=== PATIENT | male | born 1935 | race Caucasian/White ===

== ENCOUNTER → 2017-03-22 | Outpatient (CLI) | payer MEDICARE, MEDICAID ==
[~2017-03-22] MED LIST: ALPR0.5T7 OR; CHOL1TAB42 OR; CITA-77 PO; FLUT250M2 IN; FURO40TA OR; MULT-778 OR; OMEP20CA5 PO; PRA25T OR; RIVA20TA OR; SOTA80TA OR; SPIR25TA OR; SPIR25TA88 OR
[2017-03-22 12:30] LABS: Basophils # (auto) 0 uL; Basophils % (auto) 0.3 % (0.0-2.0); Eosinophils # (auto) 0.1 uL; Eosinophils % (auto) 0.9 % (0.0-7.0); Hematocrit 45.3 % (41.0-53.0); Lymphocytes # (auto) 1.3 uL; Mean Corpuscular Hemoglobin 28.2 pg (28.0-32.0); Mean Corpuscular Hgb Conc. 33.1 g/dL (32.0-36.0); Mean Corpuscular Volume 85.3 fL (80.0-100.0); Mean Platelet Volume 9.1 fL (7.4-10.4); Monocytes # (auto) 0.8 uL; Monocytes % (auto) 7.2 % (0.0-12.0); Neutrophils # (auto) 8.8 uL; Neutrophils % (auto) 79.6 % (37.0-80.0); Platelet Count (auto) 286 10^3/uL (140-450); Red Cell Distribution Width 17.1 % (11.6-16.0)
[2017-03-22 13:00] LABS: Albumin 3.3 g/dL (3.4-5.0); BUN/Creatinine Ratio 16.5; Bilirubin, Direct 0.2 mg/dL (0-0.2); Bilirubin, Total 0.7 mg/dL (0.2-1.0); Calcium 8.9 mg/dL (8.5-10.1); Potassium 4.1 mmol/L (3.5-5.1); Total Protein 7.1 g/dL (6.4-8.2)
== END | disposition home or self-care (01) ==
LOC: LAB 09:02
PROVIDERS: ATTEND Internal Medicine Cardiovascular Disease
DX: I10 Essential (primary) hypertension (principal); E78.00 Pure hypercholesterolemia, unspecified; K74.1 Hepatic sclerosis; E11.9 Type 2 diabetes mellitus without complications; R97.20 Elevated prostate specific antigen [PSA]; R53.81 Other malaise; E03.9 Hypothyroidism, unspecified; D64.9 Anemia, unspecified; E55.9 Vitamin D deficiency, unspecified; N39.0 Urinary tract infection, site not specified
CPT/HCPCS: 36415; 80048; 80061; 80076; 82306; 83036; 84153; 84154; 84403; 84443; 85025

== ENCOUNTER → 2017-04-23 | Outpatient (CLI) | payer MEDICARE, MEDICAID ==
[~2017-04-23] MED LIST changes: +ADENOSINE 90 MG/30 ML INJ IV ONE; +ADENOSINE 98 MG in GIVE UN-DILUTED 0 ML IV ONE; -OMEP20CA5 PO; +OMEP20CA74 PO
== END | disposition home or self-care (01) ==
LOC: Rad HDHVI 13:36
PROVIDERS: ATTEND Internal Medicine Cardiovascular Disease
DX: I10 Essential (primary) hypertension (principal); I25.10 Atherosclerotic heart disease of native coronary artery without angina pectoris; J44.9 Chronic obstructive pulmonary disease, unspecified
CPT/HCPCS: 78452; 93005; 96374; 96375; A9500; J0153

== ENCOUNTER → 2018-01-29 | Outpatient (CLI) | payer MEDICARE, MEDICAID ==
[~2018-01-29] MED LIST changes: -ADENOSINE 90 MG/30 ML INJ IV ONE; -ADENOSINE 98 MG in GIVE UN-DILUTED 0 ML IV ONE
[2018-01-29 12:13] LABS: Basophils # (auto) 0 uL; Basophils % (auto) 0.7 % (0.0-2.0); Eosinophils # (auto) 0.3 uL; Eosinophils % (auto) 4.7 % (0.0-7.0); Hematocrit 35.8 % (41.0-53.0); Hemoglobin 11.8 g/dL (13.5-17.5); Lymphocytes # (auto) 0.6 uL; Lymphocytes % (auto) 8.3 % (10.0-50.0); Mean Corpuscular Hemoglobin 28.1 pg (28.0-32.0); Mean Corpuscular Volume 85.1 fL (80.0-100.0); Monocytes # (auto) 0.7 uL; Monocytes % (auto) 10.1 % (0.0-12.0); Neutrophils # (auto) 5.2 uL; Neutrophils % (auto) 76.2 % (37.0-80.0); Nucleated Red Blood Cells % 0.1 %; Platelet Count (auto) 263 10^3/uL (140-450); Red Cell Distribution Width 15.6 % (11.8-14.3); White Blood Cell 6.9 10^3/uL (4.4-10.8)
[2018-01-29 12:42] LABS: Albumin 3.2 g/dL (3.4-5.0); BUN/Creatinine Ratio 15.8; Bilirubin, Total 0.5 mg/dL (0.2-1.0); Calcium 8.5 mg/dL (8.5-10.1); Free T4 (Free Thyroxine) 1.03 ng/dL (0.89-1.76); Potassium 3.9 mmol/L (3.5-5.1); Total Protein 7.4 g/dL (6.4-8.2)
[2018-01-29 12:57] LABS: Prostate Specific Antigen 4.89 ng/mL (0.0-4.0)
== END | disposition home or self-care (01) ==
LOC: LAB 07:54
PROVIDERS: ATTEND Internal Medicine Cardiovascular Disease
DX: I10 Essential (primary) hypertension (principal); E78.5 Hyperlipidemia, unspecified; D64.9 Anemia, unspecified; E11.9 Type 2 diabetes mellitus without complications; E03.9 Hypothyroidism, unspecified; E55.9 Vitamin D deficiency, unspecified; R53.81 Other malaise; D51.9 Vitamin B12 deficiency anemia, unspecified; K74.1 Hepatic sclerosis; R97.20 Elevated prostate specific antigen [PSA]
CPT/HCPCS: 36415; 80053; 80061; 82306; 82607; 83036; 84153; 84154; 84403; 84439; 84443; 85025

== ENCOUNTER 2018-04-12 01:29 | Emergency (ER) | payer MEDICARE, MEDICAID ==
[~2018-04-12] VITALS: Ht 182.9 cm; Wt 117.9 kg
[2018-04-12] MEDS ORDERED: LIDOCAINE 1% (LOCAL ANESTH.) PF 5ml SDV IJ ONE ×2 (02:15→02:30)
[2018-04-12] MEDS ORDERED: LIDOCAINE 1% HCL (LOCAL ANESTH.) INJ 20ML MDV ONE (02:18)
[2018-04-12 04:12] VITALS: BP 135/72
[2018-04-12] MEDS ORDERED: cefTRIAXone 1GM/10ml IVPUSH 10 ML IV ONE (04:30)
[2018-04-12] MEDS ORDERED: TETANUS-DIPTH-ACEL PERTUSSIS 0.5ML SYRG IM ONE (04:30)
== END 2018-04-12 04:57 | disposition home or self-care (01) ==
LOC: ER 01:29 → EDBD 01:29 → ER 04:57
DX: S31.811A Laceration without foreign body of right buttock, initial encounter (principal); I11.0 Hypertensive heart disease with heart failure; I50.9 Heart failure, unspecified; I48.91 Unspecified atrial fibrillation; E78.5 Hyperlipidemia, unspecified; J44.9 Chronic obstructive pulmonary disease, unspecified; Z86.73 Personal history of transient ischemic attack (TIA), and cerebral infarction without residual deficits; Z87.891 Personal history of nicotine dependence; Z87.11 Personal history of peptic ulcer disease; Z88.0 Allergy status to penicillin; X58.XXXA Exposure to other specified factors, initial encounter; Y93.89 Activity, other specified; Y92.89 Other specified places as the place of occurrence of the external cause; Y99.8 Other external cause status
CPT/HCPCS: 12002; 90471; 90715; 96374; 99284; J2001

== ENCOUNTER 2018-04-24 12:47 | Emergency (ER) | payer MEDICARE, MEDICAID ==
[~2018-04-24] VITALS: Ht 172.7 cm; Wt 108.9 kg
[2018-04-24 14:23] VITALS: BP 114/64
== END 2018-04-24 17:17 | disposition left against medical advice (07) ==
LOC: ER 12:47
DX: S30.91XD Unspecified superficial injury of lower back and pelvis, subsequent encounter (principal); Z53.21 Procedure and treatment not carried out due to patient leaving prior to being seen by health care provider; X58.XXXD Exposure to other specified factors, subsequent encounter

== ENCOUNTER → 2018-08-07 | Outpatient (CLI) | payer MEDICARE, MEDICAID ==
[2018-08-07 16:42] LABS: Basophils # (auto) 0.1 uL; Eosinophils # (auto) 0.2 uL; Lymphocytes # (auto) 1.1 uL; Monocytes # (auto) 0.7 uL; Neutrophils # (auto) 4.7 uL; Nucleated Red Blood Cells % 0.1 %
[2018-08-07 16:45] LABS: Albumin 3.8 g/dL (3.4-5.0); BUN/Creatinine Ratio 25.7; Bilirubin, Direct 0.1 mg/dL (0-0.2); Bilirubin, Total 0.5 mg/dL (0.2-1.0); Calcium 8.6 mg/dL (8.5-10.1); Potassium 4.1 mmol/L (3.5-5.1); Total Protein 7.8 g/dL (6.4-8.2)
[2018-08-07 16:46] LABS: Basophils % (auto) 0.9 % (0.0-2.0); Eosinophils % (auto) 2.6 % (0.0-7.0); Hematocrit 40.1 % (41.0-53.0); Hemoglobin 13.1 g/dL (13.5-17.5); Lymphocytes % (auto) 16.5 % (10.0-50.0); Mean Corpuscular Hemoglobin 26.4 pg (28.0-32.0); Mean Corpuscular Hgb Conc. 32.8 g/dL (32.0-36.0); Mean Corpuscular Volume 80.5 fL (80.0-100.0); Monocytes % (auto) 10.4 % (0.0-12.0); Neutrophils % (auto) 69.6 % (37.0-80.0); Platelet Count (auto) 258 10^3/uL (140-450); Red Blood Cells 4.98 10^6/uL (4.5-5.90); Red Cell Distribution Width 17.6 % (11.8-14.3); White Blood Cell 6.8 10^3/uL (4.4-10.8)
== END | disposition home or self-care (01) ==
LOC: LAB 14:55
PROVIDERS: ATTEND Internal Medicine
DX: C61 Malignant neoplasm of prostate (principal); E11.9 Type 2 diabetes mellitus without complications; E03.9 Hypothyroidism, unspecified; K74.1 Hepatic sclerosis; E55.9 Vitamin D deficiency, unspecified; E29.1 Testicular hypofunction; N39.0 Urinary tract infection, site not specified; I50.9 Heart failure, unspecified; J44.9 Chronic obstructive pulmonary disease, unspecified
CPT/HCPCS: 36415; 80048; 80061; 80076; 82306; 83036; 84153; 84154; 84403; 84443; 85025

== ENCOUNTER 2019-02-05 22:43 | Observation (INO) | payer MEDICARE, MEDICAID ==
[~2019-02-05] VITALS: Ht 170.2 cm; Wt 99.8 kg
[2019-02-06] MEDS ORDERED: IPRATROPIUM BROM 0.5 MG/2.5ML INH SOL NEB ONE (01:00)
[2019-02-06] MEDS ORDERED: ALBUTEROL SULF 2.5 MG/0.5ML(0.5%) NEB SOLN NEB ONE (01:00)
[2019-02-06 03:22] LABS: Basophils # (auto) 0.1 uL; Eosinophils # (auto) 0.2 uL; Mean Corpuscular Hgb Conc. 32.2 g/dL (32.0-36.0); Monocytes # (auto) 0.8 uL; Neutrophils # (auto) 4.3 uL; Nucleated Red Blood Cells % 0.1 %; White Blood Cell 6.3 10^3/uL (4.4-10.8)
[2019-02-06 03:24] LABS: Basophils % (auto) 0.9 % (0.0-2.0); Eosinophils % (auto) 2.5 % (0.0-7.0); Hematocrit 37.3 % (41.0-53.0); Lymphocytes # (auto) 0.9 uL; Lymphocytes % (auto) 14.4 % (10.0-50.0); Mean Corpuscular Hemoglobin 24.9 pg (28.0-32.0); Mean Corpuscular Volume 77.4 fL (80.0-100.0); Neutrophils % (auto) 69.2 % (37.0-80.0); Platelet Count (auto) 221 10^3/uL (140-450); Red Blood Cells 4.82 10^6/uL (4.5-5.90); Red Cell Distribution Width 18.7 % (11.8-14.3)
[2019-02-06 03:44] LABS: Alanine Aminotransferase 14 U/L (16-61); Albumin 3.3 g/dL (3.4-5.0); Anion Gap 1 (5-15); Aspartate Aminotransferase 12 U/L (15-37); Blood Urea Nitrogen 23 mg/dL (7-18); Calcium 8.5 mg/dL (8.5-10.1); Carbon Dioxide 32 mmol/L (21-32); Chloride 105 mmol/L (98-107); GFR African American 78 mL/min; GFR Non-African American 65 mL/min; Glucose 99 mg/dL (74-106); INR 1.04 (0.9-1.15); Magnesium 2.1 mg/dL (1.6-2.6); Partial Thromboplastin Time 28.9 sec (23.78-33.04); Potassium 4.3 mmol/L (3.5-5.1); Sodium 138 mmol/L (136-145)
[2019-02-06 03:50] LABS: Alkaline Phosphatase 64 U/L (45-117); Bilirubin, Total 0.4 mg/dL (0.2-1.0); Total Protein 7.1 g/dL (6.4-8.2)
[2019-02-06] MEDS ORDERED: FUROSEMIDE 20 MG/2 ML VIAL IV ONE (05:00)
[2019-02-06 08:50] VITALS: BP 156/74
== END 2019-02-06 09:13 | disposition home or self-care (01) | DRG 293 ==
LOC: EDBD 22:43 → EDUNIT# 22:43 → ER 22:47 → OVERFLOW 22:48 → ER 02-06 09:13
PROVIDERS: ADMIT Emergency Medicine; ATTEND Emergency Medicine
DX: I11.0 Hypertensive heart disease with heart failure (principal); I48.91 Unspecified atrial fibrillation; I50.9 Heart failure, unspecified; J44.9 Chronic obstructive pulmonary disease, unspecified; E78.5 Hyperlipidemia, unspecified; N28.9 Disorder of kidney and ureter, unspecified; F32.9 Major depressive disorder, single episode, unspecified; Z87.11 Personal history of peptic ulcer disease; Z87.891 Personal history of nicotine dependence; Z88.0 Allergy status to penicillin; Z79.899 Other long term (current) drug therapy; Z86.73 Personal history of transient ischemic attack (TIA), and cerebral infarction without residual deficits
CPT/HCPCS: 36415; 71045; 80053; 83735; 83880; 84443; 84484; 85025; 85379; 85610; 85730; 94640; 96374; 99284; G0378; J1940; J7611; J7644

== ENCOUNTER 2019-03-05 16:18 | Emergency (ER) | payer MEDICARE, MEDICAID ==
[~2019-03-05] VITALS: Ht 177.8 cm; Wt 120.2 kg
[2019-03-05] MEDS ORDERED: HYDROcodone-ACET 5/325MG TAB PO ONE (17:45)
[2019-03-05] MEDS ORDERED: ASPirin 81 mg TAB PO ONE (17:45)
[2019-03-05 18:02] LABS: Hemoglobin 12.6 g/dL (13.5-17.5); Mean Corpuscular Hemoglobin 24.9 pg (28.0-32.0); Mean Corpuscular Hgb Conc. 31.6 g/dL (32.0-36.0); Mean Corpuscular Volume 78.9 fL (80.0-100.0)
[2019-03-05 18:04] LABS: Basophils # (auto) 0 uL; Basophils % (auto) 0.4 % (0.0-2.0); Eosinophils # (auto) 0.2 uL; Eosinophils % (auto) 1.9 % (0.0-7.0); Hematocrit 39.9 % (41.0-53.0); Lymphocytes # (auto) 0.9 uL; Lymphocytes % (auto) 10.7 % (10.0-50.0); Monocytes # (auto) 0.9 uL; Monocytes % (auto) 10.9 % (0.0-12.0); Neutrophils # (auto) 6.4 uL; Neutrophils % (auto) 76.1 % (37.0-80.0); Platelet Count (auto) 257 10^3/uL (140-450); Red Blood Cells 5.06 10^6/uL (4.5-5.90); Red Cell Distribution Width 19.2 % (11.8-14.3); White Blood Cell 8.4 10^3/uL (4.4-10.8)
[2019-03-05 18:05] LABS: Chloride 100 mmol/L (98-107); Potassium 4.9 mmol/L (3.5-5.1); Sodium 133 mmol/L (136-145)
[2019-03-05 18:07] LABS: Albumin 3.4 g/dL (3.4-5.0); Anion Gap 6 (5-15); Blood Urea Nitrogen 25 mg/dL (7-18); Calcium 8.8 mg/dL (8.5-10.1); Carbon Dioxide 27 mmol/L (21-32); Glucose 87 mg/dL (74-106); Magnesium 2.1 mg/dL (1.6-2.6)
[2019-03-05 18:10] LABS: Alanine Aminotransferase 16 U/L (16-61); Aspartate Aminotransferase 21 U/L (15-37); BUN/Creatinine Ratio 24.8; GFR African American 91 mL/min; GFR Non-African American 75 mL/min
[2019-03-05 18:13] LABS: Alkaline Phosphatase 66 U/L (45-117); Bilirubin, Total 0.4 mg/dL (0.2-1.0); Total Protein 7.6 g/dL (6.4-8.2)
[2019-03-05] MEDS ORDERED: POTASSIUM CHL 20 Meq TABLET PO ONE (21:00)
[2019-03-05] MEDS ORDERED: FUROSEMIDE 40 MG/4 ML VIAL IV ONE (21:00)
[2019-03-05 21:21] VITALS: BP 117/76
== END 2019-03-05 22:52 | disposition home or self-care (01) ==
LOC: EDBD 16:18 → EDUNIT# 16:18 → ER 16:18
DX: I24.9 Acute ischemic heart disease, unspecified (principal); I48.91 Unspecified atrial fibrillation; J44.9 Chronic obstructive pulmonary disease, unspecified; E78.5 Hyperlipidemia, unspecified; I10 Essential (primary) hypertension; Z87.11 Personal history of peptic ulcer disease; Z86.73 Personal history of transient ischemic attack (TIA), and cerebral infarction without residual deficits; Z87.891 Personal history of nicotine dependence; Z88.0 Allergy status to penicillin; Z88.8 Allergy status to other drugs, medicaments and biological substances; Z79.899 Other long term (current) drug therapy
CPT/HCPCS: 36415; 71045; 80053; 83735; 84484; 85025; 93005; 93970; 99284; J1940

== ENCOUNTER → 2019-06-01 | Outpatient (CLI) | payer MEDICARE, MEDICAID ==
[~2019-06-01] VITALS: Ht 170.2 cm; Wt 122.5 kg
[~2019-06-01] MED LIST changes: +ADENOSINE 103 MG in GIVE UN-DILUTED 0 ML IV ONE; +ADENOSINE 90 MG/30 ML INJ IV ONE; -ALPR0.5T7 OR; +CARI-277 PO; +ESCI10TA PO; -FURO40TA OR; +GABA300C10 PO; -OMEP20CA74 PO; +OXYB5TAB24 PO; +PANT40TA2 PO; -SPIR25TA OR; +ZOLP10TA PO
== END | disposition home or self-care (01) ==
LOC: Rad HDHVI 12:59
PROVIDERS: ATTEND Internal Medicine Cardiovascular Disease
DX: I42.9 Cardiomyopathy, unspecified (principal); I51.7 Cardiomegaly
CPT/HCPCS: 78452; 93005; 93306; 96374; 96375; A9500; J0153

== ENCOUNTER → 2019-06-22 | Outpatient (CLI) | payer MEDICARE, MEDICAID ==
[~2019-06-22] MED LIST changes: -ADENOSINE 103 MG in GIVE UN-DILUTED 0 ML IV ONE; -ADENOSINE 90 MG/30 ML INJ IV ONE; -SOTA80TA OR; +SOTA80TA PO; -SPIR25TA88 OR; +SPIR25TA88 PO
[2019-06-22 10:07] VITALS: BP 133/74
--- NOTE | 2019-06-22 10:07 | NUR ---
CHF PT ARRIVED AT THE [facility] FOR PREOP VSS, EKG, LABS XRAY
[2019-06-22 10:23] VITALS: BP 126/72
--- NOTE | 2019-06-22 10:23 | NUR ---
Pre-Op Discharge Summary: See e-MAR for any medications given for this visit. Pre-op orders received and carried out per MD of EKG, LABS and chest xrays. Patient given a copy of EKG with instructions to go to [facility] out patient for further follow up care.
[2019-06-22 12:14] LABS: Basophils # (auto) 0 uL; Eosinophils # (auto) 0.2 uL; Lymphocytes # (auto) 0.7 uL; Neutrophils # (auto) 3.2 uL
[2019-06-22 12:16] LABS: Basophils % (auto) 0.8 % (0.0-2.0); Eosinophils % (auto) 3.8 % (0.0-7.0); Hematocrit 37.4 % (41.0-53.0); Hemoglobin 11.6 g/dL (13.5-17.5); Lymphocytes % (auto) 15.4 % (10.0-50.0); Mean Corpuscular Hemoglobin 24.6 pg (28.0-32.0); Mean Corpuscular Hgb Conc. 31.1 g/dL (32.0-36.0); Mean Corpuscular Volume 79.1 fL (80.0-100.0); Monocytes # (auto) 0.4 uL; Monocytes % (auto) 9.9 % (0.0-12.0); Neutrophils % (auto) 70.1 % (37.0-80.0); Nucleated Red Blood Cells % 0.4 %; Platelet Count (auto) 173 10^3/uL (140-450); Red Blood Cells 4.73 10^6/uL (4.5-5.90); Red Cell Distribution Width 18.2 % (11.8-14.3); White Blood Cell 4.5 10^3/uL (4.4-10.8)
[2019-06-22 12:24] LABS: Calcium 8.5 mg/dL (8.5-10.1); Potassium 4.2 mmol/L (3.5-5.1)
[2019-06-22 12:26] LABS: BUN/Creatinine Ratio 22.1
[2019-06-22 12:28] LABS: INR 1.04 (0.9-1.15); Partial Thromboplastin Time 24.8 sec (23.64-32.05)
== END | disposition home or self-care (01) ==
LOC: Rad HDHVI 09:53
PROVIDERS: ATTEND Internal Medicine Cardiovascular Disease
DX: Z01.818 Encounter for other preprocedural examination (principal); I11.9 Hypertensive heart disease without heart failure; I70.0 Atherosclerosis of aorta; J98.11 Atelectasis; D64.9 Anemia, unspecified; R79.1 Abnormal coagulation profile
CPT/HCPCS: 36415; 71046; 80048; 85025; 85610; 85730; 93005; G0463

== ENCOUNTER 2019-06-25 09:38 | Day surgery (SDC) | payer MEDICARE, MEDICAID ==
[~2019-06-25] VITALS: Ht 170.2 cm; Wt 131.5 kg
[2019-06-25] MEDS ORDERED: LORazepam 0.5 MG TAB PO ONE (10:15)
[2019-06-25] MEDS ORDERED: fentaNYL CITRATE 100 MCG/2 ML VL ONE (10:59)
[2019-06-25] MEDS ORDERED: ANGIOMAX 250 MG VIAL IV ONE (10:59)
[2019-06-25] MEDS ORDERED: SODIUM CHL 0.9% 0 ML ONE (11:00)
[2019-06-25] MEDS ORDERED: IOHEXOL 350 MG/ML 100ML IJ ONE (11:00)
[2019-06-25] MEDS ORDERED: MIDAZOLAM HCL 1MG/1ML-2 ML VIAL ONE (11:00)
[2019-06-25] MEDS ORDERED: LIDOCAINE 2%HCL (LOCAL ANESTH.) INJ 20ML MDV ONE (11:00)
[2019-06-25] MEDS ORDERED: VERAPAMIL 2.5MG/ML INJ 2ML VIAL IV ONE (11:09)
[2019-06-25] MEDS ORDERED: ACETAMINOPHEN 500 MG TAB PO PRN (13:45)
[2019-06-25] MEDS ORDERED: ONDANSETRON HCL 4 MG/2 ML VIAL IV PRN (13:45)
[2019-06-25] MEDS ORDERED: HYDROcodone-ACET 5/325MG TAB PO PRN (13:45)
== END 2019-06-25 15:20 ==
LOC: CATH 09:38
PROVIDERS: ATTEND Internal Medicine Cardiovascular Disease
DX: I25.10 Atherosclerotic heart disease of native coronary artery without angina pectoris (principal); I42.2 Other hypertrophic cardiomyopathy; J44.9 Chronic obstructive pulmonary disease, unspecified; E66.8 Other obesity; I10 Essential (primary) hypertension; E03.9 Hypothyroidism, unspecified; G20 Parkinson's disease; F41.9 Anxiety disorder, unspecified; G89.29 Other chronic pain; M54.16 Radiculopathy, lumbar region; F17.210 Nicotine dependence, cigarettes, uncomplicated; Z88.0 Allergy status to penicillin; Z79.82 Long term (current) use of aspirin; Z79.899 Other long term (current) drug therapy; Z96.698 Presence of other orthopedic joint implants; Z98.890 Other specified postprocedural states; Z68.42 Body mass index [BMI] 45.0-49.9, adult; Z88.8 Allergy status to other drugs, medicaments and biological substances
CPT/HCPCS: 93458; 93571; C1760; C1887; C1894; J1644; J2250; J3010; J7030; Q9967; 99152

== ENCOUNTER 2019-07-17 06:33 | Inpatient (IN) | payer MEDICARE, MEDICAID ==
[~2019-07-17] VITALS: Ht 170.2 cm; Wt 129.0 kg
[2019-07-17] MEDS ORDERED: methylPREDNISolone SOD SUCC 125 MG/2 ML VL IV ONE (07:15)
[2019-07-17] MEDS ORDERED: ALBUTEROL SULF 2.5 MG/0.5ML(0.5%) NEB SOLN HHN ONE (07:15)
[2019-07-17] MEDS ORDERED: IPRATROPIUM BROM 0.5 MG/2.5ML INH SOL HHN ONE (07:15)
[2019-07-17 09:23] LABS: Albumin 3.3 g/dL (3.4-5.0); Anion Gap 5 (5-15); BUN/Creatinine Ratio 25.8; Blood Urea Nitrogen 25 mg/dL (7-18); Calcium 8.4 mg/dL (8.5-10.1); Carbon Dioxide 33 mmol/L (21-32); Chloride 100 mmol/L (98-107); GFR African American 95 mL/min; GFR Non-African American 79 mL/min; Glucose 106 mg/dL (74-106); Potassium 4.1 mmol/L (3.5-5.1); Sodium 138 mmol/L (136-145)
[2019-07-17 09:26] LABS: Basophils # (auto) 0 uL; Eosinophils # (auto) 0.2 uL; Monocytes # (auto) 0.6 uL; Red Blood Cells 4.93 10^6/uL (4.5-5.90)
[2019-07-17 09:28] LABS: Alanine Aminotransferase 16 U/L (16-61); Alkaline Phosphatase 58 U/L (45-117); Aspartate Aminotransferase 18 U/L (15-37); Bilirubin, Total 0.6 mg/dL (0.2-1.0); Total Protein 7.2 g/dL (6.4-8.2)
[2019-07-17 09:31] LABS: Basophils % (auto) 0.4 % (0.0-2.0); Eosinophils % (auto) 3.1 % (0.0-7.0); Hematocrit 38.6 % (41.0-53.0); Hemoglobin 12.2 g/dL (13.5-17.5); Lymphocytes # (auto) 0.8 uL; Lymphocytes % (auto) 14.3 % (10.0-50.0); Mean Corpuscular Hemoglobin 24.7 pg (28.0-32.0); Mean Corpuscular Hgb Conc. 31.6 g/dL (32.0-36.0); Mean Corpuscular Volume 78.4 fL (80.0-100.0); Monocytes % (auto) 10.8 % (0.0-12.0); Neutrophils % (auto) 71.4 % (37.0-80.0); Platelet Count (auto) 150 10^3/uL (140-450); Red Cell Distribution Width 19.3 % (11.8-14.3); White Blood Cell 5.6 10^3/uL (4.4-10.8)
[2019-07-17] MEDS: RIVAROXABAN 20 MG TAB PO SCH (10:00)
[2019-07-17] MEDS ORDERED: MORPHINE SULF INJ 2 MG/ML SYRINGE 1ML IV PRN (10:00)
[2019-07-17] MEDS ORDERED: NITROGLYCERIN 0.4 MG SL TAB SL PRN (10:00)
[2019-07-17] MEDS ORDERED: cefTRIAXone 1GM/50ML D5W 50 ML IV SCH (10:00)
[2019-07-17] MEDS: PANTOPRAZOLE 40 MG TAB PO SCH (10:00)
[2019-07-17] MEDS: CARISOPRODOL 350 MG TAB PO SCH ×2 (10:00→22:30)
[2019-07-17] MEDS: CITALOPRAM HYDROBR 20 MG TAB PO SCH (10:00)
[2019-07-17] MEDS: SPIRONOLACTONE 25 MG TAB PO SCH (10:00)
[2019-07-17] MEDS: IPRATROPIUM BROM 0.5 MG/2.5ML INH SOL NEB SCH ×4 (10:20→21:49)
[2019-07-17] MEDS ORDERED: FUROSEMIDE 40 MG/4 ML VIAL IV ONE (12:30)
[2019-07-17] MEDS: methylPREDNISolone SOD SUCC 40 MG/ML VL IV SCH ×2 (14:28→22:30)
[2019-07-17] MEDS: GABAPENTIN 300 MG CAP PO SCH ×2 (14:28→22:30)
[2019-07-17] MEDS: LEVOFLOXACIN 500MG 100 ML IV SCH (14:29)
[2019-07-17 15:38] VITALS: BP 120/65
--- NOTE | 2019-07-17 16:15 | NUR ---
Telemetry admit from ER CRISTINAJEREMIAH admitted to Telemetry unit after SBAR received. Patient oriented to Marlen Banks, primary RN, unit, room, bed, and unit policies regarding patient care and visiting hours. Patient now on continuous telemetry monitoring, tele box # 1 and telemetry reading on arrival to unit is ST-[id number]. Patient placed on bedside oxygen, weighed by bed scale and encouraged to call if they need something. All questions and concerns addressed, patient verbalized understanding.
--- NOTE | 2019-07-17 16:35 | NUR ---
Wound photos on buttocks area done. Wound consult ordered.
[2019-07-17 17:00] VITALS: BP 96/60
--- NOTE | 2019-07-17 18:33 | NUR ---
Respiratory note: AT BEDSIDE FOR MED RALPH TX. PT TOLERATING WELL VIA MASK, POX ON 2LPM NC ARE 88%, HR 101, BS ARE FINE COURSE. RT NAME AND PAGER ASSIGNMENT WRITTEN ON PTS ROOM BOARD. WILL CONTINUE TO MONITOR.
--- NOTE | 2019-07-17 18:45 | NUR ---
Respiratory note: INCREASE FIO2 TO 4LPM NC. RN AT BEDSIDE AND AWARE.
--- NOTE | 2019-07-17 20:00 | NUR ---
open note assumed care of pt. upon entering room pt awake and alert. pt on 4L nc with no s/s distress at this time. pt c/o pain "all over" denies chest pain, this nurse will access MAR and medicate as appropriate. pt updated on plan of care. bed locked, low and 2x rails up. call light in reach. encouraged pt to call as needed for assistance. this nurse will round q1hr and prn.
--- NOTE | 2019-07-17 20:10 | NUR ---
paged Dr Pandya for pt complaints of pain. orders received, will input and dispense and ordered.
[2019-07-17] MEDS: HYDROcodone-ACET 10/325MG TAB PO PRN (20:41)
--- NOTE | 2019-07-17 21:10 | NUR ---
Respiratory note: SXD PT VIA TRACH FOR MODERATE THICK SOLANO.
[2019-07-17 22:00] VITALS: BP 121/67
[2019-07-17] MEDS ORDERED: ZOLPIDEM TARTRATE 5 MG PO SCH (22:00)
[2019-07-17] MEDS: ZOLPIDEM TARTRATE 5 MG TAB PO SCH (22:30)
[2019-07-18] MEDS: IPRATROPIUM BROM 0.5 MG/2.5ML INH SOL NEB SCH ×6 (02:05→22:09)
[2019-07-18] MEDS: HYDROcodone-ACET 10/325MG TAB PO PRN ×2 (04:41→20:47)
[2019-07-18 05:29] VITALS: BP 124/62
[2019-07-18] MEDS: methylPREDNISolone SOD SUCC 40 MG/ML VL IV SCH ×3 (06:46→21:47)
[2019-07-18] MEDS: GABAPENTIN 300 MG CAP PO SCH ×3 (06:46→21:47)
--- NOTE | 2019-07-18 08:00 | NUR ---
Opening Shift Note Assumed care of patient, awake and alert. No S/S of distress/SOB, 4/10 generalized body pain. Instructed on POC and to call for assist PRN, will continue to monitor for changes Q1hr and PRN.
[2019-07-18] MEDS: ALBUTEROL SULF 2.5 MG/0.5ML(0.5%) NEB SOLN NEB PRN ×3 (09:08→22:09)
[2019-07-18 09:09] VITALS: BP 133/62
[2019-07-18] MEDS: LEVOFLOXACIN 500MG 100 ML IV SCH (10:37)
[2019-07-18] MEDS: CITALOPRAM HYDROBR 20 MG TAB PO SCH (10:39)
[2019-07-18] MEDS: PANTOPRAZOLE 40 MG TAB PO SCH (10:39)
[2019-07-18] MEDS: SPIRONOLACTONE 25 MG TAB PO SCH (10:40)
[2019-07-18] MEDS: RIVAROXABAN 20 MG TAB PO SCH (10:40)
[2019-07-18] MEDS: CARISOPRODOL 350 MG TAB PO SCH ×2 (10:40→21:47)
--- NOTE | 2019-07-18 11:30 | NUR ---
PT DECLINED P.T. TODAY.
--- NOTE | 2019-07-18 12:04 | NUR ---
Nutrition Assessment Notes please see attached link for complete assessment Est. Needs ABW (99 kg): 5907-3865 kcal (17-20 kcal/kgBW), 99-108 gms pro (1.0-1.1 gms/kgBW). Will continue to monitor pertinent labs and reassess nutrient need prn Addendum: 07/18/19 at [address] Amended: Links added.
[2019-07-18 13:05] VITALS: BP 128/57
[2019-07-18 16:52] VITALS: BP 104/50
--- NOTE | 2019-07-18 17:00 | NUR ---
WOUND CARE NOTE: Wound care consult received from nursing for pressure injuries present on admission. Patient is an 83yo male admitted for bronchitis. Patient with a history of afib, anxiety, CHF, COPD, depression, high lipids, HTN, PUD and TIA. Patient is alert and denies pain. Last Lizandro score is 15. Patient states that he's had sores to buttocks to several weeks and developed them at [facility]. Patient with three wounds to sacrum, two on the right measuring 1.5x2.5cm and 0.5x0.5cm and on the left measuring 0.5x0.5cm. Patient is able to turn self in bed. States that he does have some discomfort when sitting up in chair. Seat cushion provided to help when up in chair. RECOMMENDATIONS: Dietary consult; Turn q2hrs; Nursing to cleanse buttocks wounds with wound cleanser, pat dry, apply THERAHONEY GEL to wounds, cover with OPTIFOAM GENTLE dressing, change every other day and PRN; wound care team to follow. Addendum: 07/18/19 at 1827 by JUNE JENNINGS RN Amended: Links added.
--- NOTE | 2019-07-18 19:33 | NUR ---
Opening Shift Note Assumed care of patient, awake and alert. Patient on 4L NC with a humidifier saturating at 93%. No s/s of SOB at this moment. Patient verbalizes generalized pain and rates it as a 7/10. Will assess patient and medicate as per order. Instructed on POC and to call for assist PRN, will continue to monitor for changes Q1hr and PRN.
--- NOTE | 2019-07-18 20:00 | NUR ---
Patient states he "wet his bed", patient asked questions in regards to incontinence, patient states he is "no truly incontinent but is used to using diapers at [facility]". Patient educated in regards on alternative measures to void such as urinal and to call for assistance as needed as well as risks of skin integrity if moist skin. Patient verbalizes understanding. Full linen change provided, patients skin cleaned and dried. Optifoam gentle dressing dry and intact. Will continue to monitor.
[2019-07-18 21:24] VITALS: BP 120/64
[2019-07-18] MEDS: ZOLPIDEM TARTRATE 5 MG TAB PO SCH (21:47)
--- NOTE | 2019-07-18 22:24 | NUR ---
DR HE TEXTED IN REGARDS TO PATIENTS NON PRODUCTIVE COUGH, CAUSING DISCOMFORT AND SORE THROAT. PATIENT REQUESTS COUGH SYRUP. AWAITING ORDERS FROM .
--- NOTE | 2019-07-19 | NUR ---
ROUNDS PATIENT AWAKE AND ALERT, RESTING COMFORTABLY IN BED WATCHING TELEVISION. DENIES PAIN OR SOB AT THIS TIME. CONTINUES TO VERBALIZE SORE THROAT AND NEED FOR COUGH SUPPRESSANT. AWAITING ORDERS FROM MD. PATIENT ALSO STATES "I FEEL DEPRESSED, I AM TIRED OF FEELING SICK". CLERGY/COMMUNITY SERVICES OFFERED TO PATIENT. PATIENT DECLINES AT THIS TIME. PATIENT PROVIDED WITH HOT BEVERAGE AND READING MATERIAL TO AID A DISTRACTION. PATIENT STATES "THAT WILL HELP", WILL CONTINUE TO MONITOR Q1H AND PRN
[2019-07-19] MEDS: ALBUTEROL SULF 2.5 MG/0.5ML(0.5%) NEB SOLN NEB PRN ×6 (02:17→22:47)
[2019-07-19] MEDS: IPRATROPIUM BROM 0.5 MG/2.5ML INH SOL NEB SCH ×6 (02:17→22:47)
[2019-07-19] MEDS: HYDROcodone-ACET 10/325MG TAB PO PRN ×2 (05:09→22:15)
[2019-07-19 05:17] VITALS: BP 135/56
[2019-07-19] MEDS: GABAPENTIN 300 MG CAP PO SCH ×3 (05:29→22:15)
[2019-07-19] MEDS: methylPREDNISolone SOD SUCC 40 MG/ML VL IV SCH ×3 (05:29→22:15)
--- NOTE | 2019-07-19 06:07 | NUR ---
DID NOT RECEIVE CALL/TEXT BACK FROM MD HE. PATIENT CONTINUES TO COMPLAIN OF COUGH AND SORE THROAT. WILL ENDORSE COUGH MEDICINE REQUEST TO DAY SHIFT.
--- NOTE | 2019-07-19 07:18 | NUR ---
ENDORSED CARE/ PENDING REQUESTS TO DAY SHIFT RNKRIS.
--- NOTE | 2019-07-19 08:00 | NUR ---
Opening Shift Note Assumed care of patient, awake and alert. No S/S of distress/SOB, 4/10 generalized body pain. Turned to sides every 2 hours. Instructed on POC and to call for assist PRN, will continue to monitor for changes Q1hr and PRN.
[2019-07-19 09:00] VITALS: BP 152/72
[2019-07-19] MEDS: CITALOPRAM HYDROBR 20 MG TAB PO SCH (09:30)
[2019-07-19] MEDS: SPIRONOLACTONE 25 MG TAB PO SCH (09:30)
[2019-07-19] MEDS: RIVAROXABAN 20 MG TAB PO SCH (09:30)
[2019-07-19] MEDS: PANTOPRAZOLE 40 MG TAB PO SCH (09:30)
[2019-07-19] MEDS: CARISOPRODOL 350 MG TAB PO SCH ×2 (09:30→22:15)
[2019-07-19] MEDS: LEVOFLOXACIN 500MG 100 ML IV SCH (09:30)
[2019-07-19 13:21] VITALS: BP 135/75
[2019-07-19] MEDS: ACETYLCYSTEINE 10 %(100MG/ML) SOL 4ML NEB SCH ×2 (14:45→22:47)
[2019-07-19 17:03] VITALS: BP 128/80
--- NOTE | 2019-07-19 19:20 | NUR ---
Opening Shift Note Assumed care of patient, awake and alert. Patient on 4L NC with a humidifier saturating at 92%. Patient denies pain at this moment. Bed at its lowest position, side rails up X2. Call light within reach. Instructed on POC and to call for assist PRN, will continue to monitor for changes Q1hr and PRN.
[2019-07-19 22:00] VITALS: BP 134/59
--- NOTE | 2019-07-19 22:00 | NUR ---
linen change Patient incontinent of urine. Skin integrity assessed for any changes. Patient cleaned and dried, linens changed. Patient repositioned for comfort.
[2019-07-19] MEDS: ZOLPIDEM TARTRATE 5 MG TAB PO SCH (22:15)
--- NOTE | 2019-07-19 22:35 | NUR ---
RT NOTE: PT REQUEST NOT TO BE DISTURBED FOR 0200 TX, PT STATED HE WANTS TO REST AND WILL CALL IF SOB OCCURS.
[2019-07-20] MEDS: IPRATROPIUM BROM 0.5 MG/2.5ML INH SOL NEB SCH ×7 (01:58→22:21)
[2019-07-20] MEDS: ALBUTEROL SULF 2.5 MG/0.5ML(0.5%) NEB SOLN NEB PRN ×6 (02:52→22:21)
[2019-07-20] MEDS: ACETYLCYSTEINE 10 %(100MG/ML) SOL 4ML NEB SCH ×4 (02:59→22:22)
[2019-07-20] MEDS: guaiFENesin-DM 100/10mg/5ml SYR PO PRN ×3 (03:11→22:24)
[2019-07-20 05:00] VITALS: BP 139/50
[2019-07-20] MEDS: GABAPENTIN 300 MG CAP PO SCH ×3 (06:06→22:13)
[2019-07-20] MEDS: methylPREDNISolone SOD SUCC 40 MG/ML VL IV SCH ×3 (06:06→22:13)
--- NOTE | 2019-07-20 08:00 | NUR ---
Opening Shift Note Assumed care of patient, awake and alert. No S/S of distress/SOB , 5/10 generalized body pain. Instructed on POC and to call for assist PRN, will continue to monitor for changes Q1hr and PRN.
--- NOTE | 2019-07-20 08:18 | NUR ---
Patient stated having blood stain around the IV site on the left index finger. IV still flushed very well with NS 10ml but patient requested if IV can be changed. IV removal done, catheter intact and pressure dressing applied.
--- NOTE | 2019-07-20 08:30 | NUR ---
IV insertion IV access obtained, via clean sterile technique by inserting 22 gauge catheter at left hand after one attempt. IV secured properly. No trauma to site. Patient tolerated well.
[2019-07-20 09:00] VITALS: BP 138/65
[2019-07-20] MEDS: LEVOFLOXACIN 500MG 100 ML IV SCH (09:44)
[2019-07-20] MEDS: PANTOPRAZOLE 40 MG TAB PO SCH (09:44)
[2019-07-20] MEDS: CARISOPRODOL 350 MG TAB PO SCH ×2 (09:44→22:13)
[2019-07-20] MEDS: CITALOPRAM HYDROBR 20 MG TAB PO SCH (09:45)
[2019-07-20] MEDS: RIVAROXABAN 20 MG TAB PO SCH (09:45)
[2019-07-20] MEDS: SPIRONOLACTONE 25 MG TAB PO SCH (09:45)
--- NOTE | 2019-07-20 10:00 | NUR ---
Turning to sides every 2 hours. Patient able to turn with minimal assistance.
[2019-07-20 12:00] VITALS: BP 120/58
[2019-07-20 15:37] LABS: Basophils # (auto) 0 uL; Basophils % (auto) 0.2 % (0.0-2.0); Eosinophils # (auto) 0 uL; Lymphocytes # (auto) 0.6 uL; Platelet Count (auto) 231 10^3/uL (140-450); White Blood Cell 8.9 10^3/uL (4.4-10.8)
[2019-07-20 15:38] LABS: Hematocrit 39.6 % (41.0-53.0); Hemoglobin 12.5 g/dL (13.5-17.5); Lymphocytes % (auto) 7.2 % (10.0-50.0); Mean Corpuscular Hemoglobin 24.9 pg (28.0-32.0); Mean Corpuscular Hgb Conc. 31.7 g/dL (32.0-36.0); Mean Corpuscular Volume 78.5 fL (80.0-100.0); Monocytes # (auto) 1.2 uL; Monocytes % (auto) 13.2 % (0.0-12.0); Neutrophils % (auto) 79.4 % (37.0-80.0); Red Blood Cells 5.05 10^6/uL (4.5-5.90); Red Cell Distribution Width 19.3 % (11.8-14.3)
[2019-07-20 15:54] LABS: Albumin 3.3 g/dL (3.4-5.0); Calcium 8.2 mg/dL (8.5-10.1); Potassium 4.7 mmol/L (3.5-5.1)
[2019-07-20 15:57] LABS: Bilirubin, Total 0.4 mg/dL (0.2-1.0); Total Protein 7.4 g/dL (6.4-8.2)
--- NOTE | 2019-07-20 16:11 | NUR ---
Assessment Pt is a 83 yr old pt alert and oriented. Prior to admission, pt resides at [facility] and plans to d/c there upon clearance. Pt's emergency contact and SANDEE is his daughter, Merle Hightower, . Pt admitted with Bronchitis and experiences severe shortness of breath. Pt stated that he uses 02 continuously 03/06. Pt also utilizes walker, W/C, shower chair. Pt's primary Dr Pandya. Pt agrees and understands d/c back to SNF upon medical clearance. Addendum: 07/20/19 at 1618 by KIERSTEN GILES Amended: Links added.
[2019-07-20 17:00] VITALS: BP 138/60
--- NOTE | 2019-07-20 17:00 | NUR ---
Applied Thera honey on right buttocks then covered with Optifoam dressing.
[2019-07-20 19:09] LABS: Urine WBC None Seen /hpf (0 - 3)
--- NOTE | 2019-07-20 19:10 | NUR ---
Opening Shift Note Assumed care of patient, awake and alert. Sitting up in bed finishing dinner. No S/S of distress/SOB or pain. Instructed on POC and to call for assist PRN, will continue to monitor for changes Q1hr and PRN.
[2019-07-20 19:25] LABS: Urine Bacteria NONE SEEN /hpf (None Seen); Urine Blood Negative /uL (Negative); Urine Specific Gravity 1.014 (1.001-1.035)
[2019-07-20 22:00] VITALS: BP 134/76
[2019-07-20] MEDS: ZOLPIDEM TARTRATE 5 MG TAB PO SCH (22:13)
[2019-07-20] MEDS: HYDROcodone-ACET 10/325MG TAB PO PRN (22:15)
--- NOTE | 2019-07-20 22:15 | NUR ---
RT AT BEDSIDE
[2019-07-21] MEDS: ALBUTEROL SULF 2.5 MG/0.5ML(0.5%) NEB SOLN NEB PRN ×4 (02:13→22:00)
[2019-07-21] MEDS: IPRATROPIUM BROM 0.5 MG/2.5ML INH SOL NEB SCH ×6 (02:13→22:00)
[2019-07-21 03:35] VITALS: BP 134/76
[2019-07-21 05:00] VITALS: BP 119/64
[2019-07-21] MEDS: methylPREDNISolone SOD SUCC 40 MG/ML VL IV SCH ×3 (06:24→22:23)
[2019-07-21] MEDS: GABAPENTIN 300 MG CAP PO SCH ×3 (06:25→22:24)
[2019-07-21] MEDS: ACETYLCYSTEINE 10 %(100MG/ML) SOL 4ML NEB SCH ×3 (06:45→22:00)
--- NOTE | 2019-07-21 07:47 | NUR ---
Opening Patient awake in bed, lights on, bed in lowest position, call light within reach. No distress noted at this time. Will f/u with morning assessment. Patient has history of ESBL in sputum however no isolation set up, will confirm this with charge nurse, and place protocol order for a sputum to rule this out. MRSA negative Blood cultures negative BUN 31 Sodium 134 UA negative Physical therapy has been frequent CXR shows small L pleural effusion Patient has 2 allergies, will confirm. This is patient of DR Pandya, will await next orders for Plan of care
[2019-07-21 08:58] VITALS: BP 132/71
--- NOTE | 2019-07-21 12:47 | NUR ---
Nutrition Follow-up Notes Wt.: 127.2 kg as of yesterday. Pt's on oxygen via nasal cannula, asleep, no immediate family member at bedside during rounds this morning. Pt's no signs of distress noted earlier, currently on Chopped Fine 2 gms Na diet with adequate PO intake aeb 100% ave. consumed meals (x6) in last 2.5 days. Est. Needs ABW (99 kg): 0956-8607 kcal (17-20 kcal/kgBW), 99-108 gms pro (1.0-1.1 gms/kgBW). Will continue to monitor pertinent labs and reassess nutrient need prn Labs: Gluc 158 H, Na 134 L, BUN 31 H, Ca 8.2 L, Alb 3.3 L Skin: Lizandro scale 13, mod risk, tp's left right buttocks pressure ulcers per driller brake lining. Pls refer to latest enginehouse brakeman's notes for further details re: tx plans. GI: Pt's no bowel activity since 07/17/19 per driller brake lining. PES: Altered nutrition related lab values r/t current/chronic medical condition aeb elev BUN hypocalcemia Obesity r/t food intake more than body requirement aeb 189% IBW, BMI 43.9 kg/m2 and increased body adiposity Will continue to monitor PO intake, skin status, pertinent labs and weight trend. F/u in 3 to 5 days. Rec.: 1.) Consider Chopped Fine Cardiac: 2 gms Na, Low Chol, Low Fat diet. 2.) Consider daily MVI with minerals and Asc acid 500 mgs BID 3.) If Albumin continues trending down, consider Prostat 1 pkt BID. 4.) Continue close supervision with meals. 5.) Refer pt to RD for further nutrition education and weight monitoring upon discharge. 6.) Continue current plan of care.
[2019-07-21 13:00] VITALS: BP 127/70
[2019-07-21] MEDS: LEVOFLOXACIN 500MG 100 ML IV SCH (13:11)
[2019-07-21] MEDS: CARISOPRODOL 350 MG TAB PO SCH ×2 (13:12→22:24)
[2019-07-21] MEDS: PANTOPRAZOLE 40 MG TAB PO SCH (13:12)
[2019-07-21] MEDS: RIVAROXABAN 20 MG TAB PO SCH (13:12)
[2019-07-21] MEDS: SPIRONOLACTONE 25 MG TAB PO SCH (13:12)
[2019-07-21] MEDS: CITALOPRAM HYDROBR 20 MG TAB PO SCH (13:12)
[2019-07-21 17:00] VITALS: BP 132/69
--- NOTE | 2019-07-21 19:45 | NUR ---
Opening Shift Note Assumed care of patient, awake and alert. Patient on 4L NC with a humidifier saturating at 93%. Patient denies pain at this moment. Sputum sample container given to patient, patient verbalizes understanding to call nurse to collect sputum once able to. Bed at its lowest position, side rails up X2. Call light within reach. Instructed on POC and to call for assist PRN, will continue to monitor for changes Q1hr and PRN.
[2019-07-21 21:11] VITALS: BP 129/79
[2019-07-21] MEDS: ZOLPIDEM TARTRATE 5 MG TAB PO SCH (22:23)
--- NOTE | 2019-07-21 23:14 | NUR ---
CARE ENDORSED TO MURRAY MERCADO.
[2019-07-22] MEDS: guaiFENesin-DM 100/10mg/5ml SYR PO PRN ×3 (00:08→20:41)
[2019-07-22] MEDS: IPRATROPIUM BROM 0.5 MG/2.5ML INH SOL NEB SCH ×6 (02:11→21:42)
[2019-07-22] MEDS: ALBUTEROL SULF 2.5 MG/0.5ML(0.5%) NEB SOLN NEB PRN ×6 (03:35→21:42)
[2019-07-22 05:05] VITALS: BP 132/66
[2019-07-22] MEDS: ACETYLCYSTEINE 10 %(100MG/ML) SOL 4ML NEB SCH ×3 (05:58→21:55)
[2019-07-22] MEDS: GABAPENTIN 300 MG CAP PO SCH ×3 (06:16→22:30)
[2019-07-22] MEDS: methylPREDNISolone SOD SUCC 40 MG/ML VL IV SCH ×3 (06:16→22:30)
--- NOTE | 2019-07-22 07:34 | NUR ---
OPENING NOTE Assumed care of patient from [facility]. Patient awake and alert with no S/S of distress/SOB or pain. Nasal cannula in place, connected to 4L O2. Instructed on POC and to call for assist PRN, verbalized understanding. Bed in lowest, locked position with side rails up x2. Fall precautions in place and call light within reach. Will continue to monitor for changes Q1hr and PRN.
[2019-07-22] MEDS: LEVOFLOXACIN 500MG 100 ML IV SCH ×2 (08:29→10:41)
[2019-07-22] MEDS: HYDROcodone-ACET 10/325MG TAB PO PRN ×2 (08:30→20:39)
[2019-07-22 08:46] VITALS: BP 130/62
[2019-07-22] MEDS: CARISOPRODOL 350 MG TAB PO SCH ×2 (10:42→22:30)
[2019-07-22] MEDS: CITALOPRAM HYDROBR 20 MG TAB PO SCH (10:42)
[2019-07-22] MEDS: PANTOPRAZOLE 40 MG TAB PO SCH (10:42)
[2019-07-22] MEDS: RIVAROXABAN 20 MG TAB PO SCH (10:42)
[2019-07-22] MEDS: SPIRONOLACTONE 25 MG TAB PO SCH (10:42)
[2019-07-22 13:00] VITALS: BP_SYST 117; BP_SYST 151; BP_DIAS 65; BP_DIAS 82
--- NOTE | 2019-07-22 15:52 | NUR ---
Respiratory note: CORRECT TIME IS 1441 Addendum: 07/22/19 at 1553 by MONTANA AMOR, RT RT Amended: Links added.
--- NOTE | 2019-07-22 16:50 | NUR ---
DRESSING CHANGE Removed soiled sacral dressing. Cleansed area with wound cleanser, patted dry with sterile gauze. Applied thera-honey gauze over open wound bed and covered with Optifoam sacral dressing. Patient tolerated well.
[2019-07-22 17:00] VITALS: BP 133/66
--- NOTE | 2019-07-22 17:38 | NUR ---
PT Patient ambulated around unit, accompanied by PT. Patient currently sitting in bedside chair. No S/S of distress/SOB or pain noted. Will continue to monitor.
--- NOTE | 2019-07-22 17:57 | NUR ---
Respiratory note: at bedside for med regina zapata.
--- NOTE | 2019-07-22 19:26 | NUR ---
CLOSING NOTE Endorsed care of patient to NOC Jacinda MERCADO.
--- NOTE | 2019-07-22 19:30 | NUR ---
Opening Shift Note Assumed care of patient, awake and alert x4. Oxygen via NC. Very talkative and in good spirits. IV to L Proctor flushed/patent and locked. No S/S of distress/SOB or pain. Instructed on POC and to call for assist PRN, will continue to monitor for changes Q1hr and PRN. Call light within reach
[2019-07-22 20:00] VITALS: BP 122/66
[2019-07-22 21:09] VITALS: BP 147/75
--- NOTE | 2019-07-22 21:42 | NUR ---
Respiratory note: AT BEDSIDE FOR MED RALPH CHAPIN.
[2019-07-22] MEDS: ZOLPIDEM TARTRATE 5 MG TAB PO SCH (22:30)
[2019-07-23] VITALS (7 sets, daily range): BP systolic 136–143; BP diastolic 60–73
[2019-07-23] MEDS: IPRATROPIUM BROM 0.5 MG/2.5ML INH SOL NEB SCH ×6 (01:59→22:41)
--- NOTE | 2019-07-23 01:59 | NUR ---
Respiratory note: AT BEDSIDE FOR MED RALPH CHAPIN.
--- NOTE | 2019-07-23 03:00 | NUR ---
Changed linens and gown. Had soft medium BM and incontinent of urine a couple times as well. Partial bed bath given. Verbalized his IV is bothering him. Will remove and attempt to start a new one. Call light within reach. Snacks given as well per pt request
[2019-07-23] MEDS: ALBUTEROL SULF 2.5 MG/0.5ML(0.5%) NEB SOLN NEB PRN ×2 (05:54→14:23)
[2019-07-23] MEDS: ACETYLCYSTEINE 10 %(100MG/ML) SOL 4ML NEB SCH ×3 (05:54→22:41)
--- NOTE | 2019-07-23 06:00 | NUR ---
New IV started to L FA 22 G. Saline locked. Tolerated well. Awake and alert. Continues to have cough. Oxygen via NC. No SOB noted at rest
[2019-07-23] MEDS: methylPREDNISolone SOD SUCC 40 MG/ML VL IV SCH ×3 (06:47→21:49)
[2019-07-23] MEDS: GABAPENTIN 300 MG CAP PO SCH ×3 (06:47→21:50)
--- NOTE | 2019-07-23 07:38 | NUR ---
OPENING NOTE Assumed care of patient from NOC RN, Jacinda. Patient awake and alert with no S/S of distress/SOB or pain. Nasal cannula in place, connected to 4L O2. Instructed on POC and to call for assist PRN, verbalized understanding. Bed in lowest, locked position with side rails up x2. Fall precautions in place and call light within reach. Will continue to monitor for changes Q1hr and PRN.
[2019-07-23] MEDS: LEVOFLOXACIN 500MG 100 ML IV SCH (09:42)
[2019-07-23] MEDS: SPIRONOLACTONE 25 MG TAB PO SCH (09:42)
[2019-07-23] MEDS: CARISOPRODOL 350 MG TAB PO SCH ×2 (09:43→21:49)
[2019-07-23] MEDS: PANTOPRAZOLE 40 MG TAB PO SCH (09:43)
[2019-07-23] MEDS: CITALOPRAM HYDROBR 20 MG TAB PO SCH (09:43)
[2019-07-23] MEDS: RIVAROXABAN 20 MG TAB PO SCH (09:44)
--- NOTE | 2019-07-23 10:41 | NUR ---
ESBL Per microbiology tech, patient's sputum culture is (+) for ESBL. Dr. Pandya notified.
--- NOTE | 2019-07-23 11:52 | NUR ---
PT Patient ambulated with PT, is now sitting in bedside chair. No S/S of distress noted.
--- NOTE | 2019-07-23 14:24 | NUR ---
AWARE Dr. Pandya aware of ESBL and change in antibiotics per pharmacy recommendations. States to put hold on discharge.
[2019-07-23] MEDS: ERTAPENEM GM in SODIUM CHL 0.9% 50 ML IV SCH (14:52)
--- NOTE | 2019-07-23 18:55 | NUR ---
IV Removed IV left lower forearm secondary to bruising and soreness, catheter intact and pressure dressing applied. New IV access obtained, via clean sterile technique by inserting 22 gauge catheter at left forearm after 2 attempts. IV secured properly. No trauma to site. Patient tolerated well.
--- NOTE | 2019-07-23 19:20 | NUR ---
CLOSING NOTE Endorsed care of patient to NOC Leigh Ann MERCADO.
--- NOTE | 2019-07-23 19:20 | NUR ---
Opening Shift Note Assumed care of patient, awake and alert. No S/S of distress/SOB or pain. Instructed on POC and to call for assist PRN, will continue to monitor for changes Q1hr and PRN. Bed in low position and call light within reach.
[2019-07-23] MEDS: HYDROcodone-ACET 10/325MG TAB PO PRN (19:51)
[2019-07-23] MEDS: ZOLPIDEM TARTRATE 5 MG TAB PO SCH (22:00)
[2019-07-24] MEDS: IPRATROPIUM BROM 0.5 MG/2.5ML INH SOL NEB SCH ×6 (02:00→18:00)
--- NOTE | 2019-07-24 03:13 | NUR ---
Dressing change performed. Cleanse buttocks wounds with wound cleanser, patted dry, applied THERAHONEY GEL to wounds and covered with optifoam. Repositioned patient onto his right side. Pressure areas elevated onto pillows.
[2019-07-24 05:00] VITALS: BP 150/75
[2019-07-24] MEDS: ALBUTEROL SULF 2.5 MG/0.5ML(0.5%) NEB SOLN NEB PRN ×2 (05:34→14:05)
[2019-07-24] MEDS: ACETYLCYSTEINE 10 %(100MG/ML) SOL 4ML NEB SCH ×2 (05:34→14:05)
[2019-07-24] MEDS: methylPREDNISolone SOD SUCC 40 MG/ML VL IV SCH ×2 (05:34→14:05)
[2019-07-24] MEDS: GABAPENTIN 300 MG CAP PO SCH ×2 (05:34→14:05)
[2019-07-24] MEDS: HYDROcodone-ACET 10/325MG TAB PO PRN ×2 (05:52→14:07)
--- NOTE | 2019-07-24 07:14 | NUR ---
REPORT GIVEN TO DAY SHIFT RN
--- NOTE | 2019-07-24 07:33 | NUR ---
OPENING NOTE Assumed care of patient from NOC RNLeigh Ann. Patient awake and alert with no S/S of distress/SOB or pain. Nasal cannula in place, connected to 4L O2. Instructed on POC and to call for assist PRN, verbalized understanding. Bed in lowest, locked position with side rails up x2. Fall precautions in place and call light within reach. Will continue to monitor for changes Q1hr and PRN.
[2019-07-24 09:00] VITALS: BP 145/64
[2019-07-24] MEDS: CITALOPRAM HYDROBR 20 MG TAB PO SCH (11:05)
[2019-07-24] MEDS: SPIRONOLACTONE 25 MG TAB PO SCH (11:05)
[2019-07-24] MEDS: PANTOPRAZOLE 40 MG TAB PO SCH (11:06)
[2019-07-24] MEDS: RIVAROXABAN 20 MG TAB PO SCH (11:06)
[2019-07-24] MEDS: CARISOPRODOL 350 MG TAB PO SCH (11:06)
--- NOTE | 2019-07-24 12:30 | NUR ---
Nutrition Follow-up Notes Wt.: 129.0 kg Pt's on oxygen via nasal cannula, asleep, no immediate family member at bedside during rounds this morning. Pt's no signs of distress noted earlier, currently on 2 gm na diet with adequte PO of > 75% x 4 per RN doc Est. Needs ABW (99 kg): 2136-7428 kcal (17-20 kcal/kgBW), 99-108 gms pro (1.0-1.1 gms/kgBW). Will continue to monitor pertinent labs and reassess nutrient need prn Labs: ALB 3.3 L, BUN 31 H, GLU 158 H, CA 8.3 L Skin: Lizandro scale 13, mod risk, tp's left right buttocks pressure ulcers per picker machine operator. Pls refer to latest ethylene plant helper's notes for further details re: tx plans. GI: Pt had 1 BM today per picker machine operator. PES: Altered nutrition related lab values r/t current/chronic medical condition aeb elev BUN hypocalcemia Obesity r/t food intake more than body requirement aeb 189% IBW, BMI 43.9 kg/m2 and increased body adiposity Will continue to monitor PO intake, skin status, pertinent labs and weight trend. F/u in 3 to 5 days. Rec.: 1.) Consider Cardiac: 2 gms Na, Low Chol, Low Fat diet. 2.) Consider daily MVI with minerals and Asc acid 500 mgs BID 3.) If Albumin continues trending down, consider Prostat 1 pkt BID. 4.) Continue close supervision with meals. 5.) Refer pt to RD for further nutrition education and weight monitoring upon discharge. 6.) Continue current plan of care.
[2019-07-24 13:00] VITALS: BP 127/67
[2019-07-24] MEDS: ERTAPENEM GM in SODIUM CHL 0.9% 50 ML IV SCH (14:05)
--- NOTE | 2019-07-24 15:50 | NUR ---
WOUND PHOTO Discharge wound photos taken. Soiled dressings removed, wound areas cleaned with wound cleanser, patted dry with sterile gauze. Thera honey gauze applied wound bed and covered with non adherent optifoam and medipore tape.
--- NOTE | 2019-07-24 16:31 | NUR ---
Discharge planning per consult, patient has orders to dc to SNF upon discharge. 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 Placed a follow up call, spoke to Ying and was advised that they will accept this patient back to room [address] Fink. transportation was arranged via [employer] and to be transported via [employer]. Transport will be here to pick the patient up at 4pm. Nurse Elisa was advised of dc plan. Addendum: 07/24/19 at 1641 by TERA THAO Amended: Links added.
--- NOTE | 2019-07-24 16:45 | NUR ---
DISCHARGE Discharge instructions given as ordered. Patient being transferred to SNF, [facility]. All questions and concerns addressed, patient verbalized understanding. Medication reconciliation form completed and copy given to patient. IV removed with catheter intact and pressure dressing applied. Telemetry unit returned to ICU. Patient taken to vehicle via gurney with all personal belongings, [facility]. No distress noted at time of departure.
--- NOTE | 2019-07-24 16:50 | NUR ---
REPORT Report given to RN, Jaqui, at [facility]. [facility] and will be going to room 12A, attending MD is Dr. Fink.
== END 2019-07-24 16:45 | DRG 190 ==
LOC: EDUNIT# 06:33 → EDBD 06:33 → ER 06:36 → TELE 06:37 → EAST 16:15 → TELE-EAST 17:17
PROVIDERS: ADMIT Internal Medicine Cardiovascular Disease; ATTEND Internal Medicine Cardiovascular Disease
DX: J44.1 Chronic obstructive pulmonary disease with (acute) exacerbation (principal); J96.90 Respiratory failure, unspecified, unspecified whether with hypoxia or hypercapnia; J18.9 Pneumonia, unspecified organism; I50.33 Acute on chronic diastolic (congestive) heart failure; E87.2 Acidosis; I11.0 Hypertensive heart disease with heart failure; J44.0 Chronic obstructive pulmonary disease with (acute) lower respiratory infection; M19.90 Unspecified osteoarthritis, unspecified site; F17.210 Nicotine dependence, cigarettes, uncomplicated; F32.9 Major depressive disorder, single episode, unspecified; F41.9 Anxiety disorder, unspecified; I48.91 Unspecified atrial fibrillation; Z82.49 Family history of ischemic heart disease and other diseases of the circulatory system; Z86.73 Personal history of transient ischemic attack (TIA), and cerebral infarction without residual deficits; Z87.11 Personal history of peptic ulcer disease; Z82.5 Family history of asthma and other chronic lower respiratory diseases; Z88.0 Allergy status to penicillin; Z88.8 Allergy status to other drugs, medicaments and biological substances; Z16.12 Extended spectrum beta lactamase (ESBL) resistance
CPT/HCPCS: 36415; 71045; 80053; 81001; 83605; 83735; 83880; 84484; 85025; 87040; 87070; 87077; 87081; 87186; 87205; 93005; 94640; 94644; 94761; 96365; 96375; 97116; 97530; G0378; J1335; J1956